=== PATIENT | male | born 1945 | race American Indian/Alaskan Native ===

== ENCOUNTER 2018-12-05 11:21 | Day surgery (SDC) | payer MEDICARE ==
[2018-12-05] MEDS ORDERED: Lactated Ringer's 500 ML IV ONE (11:51)
[2018-12-05 11:53] VITALS: BMI 17.1
[2018-12-05 12:10] VITALS: O2SAT 99
[2018-12-05] MEDS ORDERED: Propofol 10 mg/ml Inj (20 ML) ONE (13:08)
[2018-12-05 13:39] VITALS: RESP 16
[2018-12-05 14:00] VITALS: BP 178/92; PULSE 88; TEMP 98.1
== END 2018-12-05 14:31 | disposition home or self-care (01) ==
LOC: H.ENDO 11:21
PROVIDERS: ATTEND Internal Medicine Gastroenterology
DX: D12.5 Benign neoplasm of sigmoid colon (principal); K52.9 Noninfective gastroenteritis and colitis, unspecified; K92.1 Melena; K62.89 Other specified diseases of anus and rectum
CPT/HCPCS: 45380; 88305; J2001; J2704; J7120

== ENCOUNTER 2018-12-05 15:37 | Inpatient (IN) | payer MEDICARE ==
[2018-12-05 15:39] VITALS: BMI 17.1
--- NOTE | 2018-12-05 16:14 | ED PDOC ---
HPI:Nausea, Vomiting, Diarrhea Time Seen by Provider: 12/05/18 15:49 Chief Complaint (Provider): Diarrhea, Abdominal Pain History Per: Patient History/Exam Limitations: no limitations Onset/Duration Of Symptoms: Days (x2 weeks) Current Symptoms Are (Timing): Still Present Additional Complaint(s): 73 year old male presents to the ED for evaluation of diarrhea and abdominal pain. Patient states that for the past two weeks he has been having 5-6 episodes or more daily of watery, sometimes bloody diarrhea associated with mild crampy abdominal pain which feels similar to past flare ups of his ulcerative colitis. He reports Dr. Nieto sent him to ED for further evaluation s/p colonoscopy today which showed active exacerbation of his ulcerative colitis. Patient also complaining of some fatigue and generalized weakness at this time. Denies recent antibiotic use. Past Medical History Reviewed: Historical Data, Nursing Documentation, Vital Signs Primary Care Provider: Km Finch - Medical History PMH: HTN Denies: Chronic Kidney Disease Other PMH: ulcerative colitis - Surgical History Surgical History: Back Surgery (lumbar spine s/p fracture) Other surgeries: colonoscopy - Family History Family History: States: No Known Family Hx - Social History Current smoker - smoking cessation education provided: No - Home Medications Home Medications: Ambulatory Orders Medication Instructions Recorded predniSONE [predniSONE Tab] 20 mg PO BID 12/05/18 - Allergies Allergies/Adverse Reactions: Allergies Allergy/AdvReac Type Severity Reaction Status Date / Time No Known Allergies Allergy Verified 12/05/18 11:28 Review of Systems ROS Statement: Except As Marked, All Systems Reviewed And Found Negative (as per HPI) Constitutional: Positive for: Weakness (generalized, and fatigue) Gastrointestinal: Positive for: Abdominal Pain (mild crampy), Diarrhea (watery, sometimes bloody) Physical Exam - Reviewed Nursing Documentation Reviewed: Yes Vital Signs Reviewed: Yes - Physical Exam Appears: Positive for: Well, Non-toxic, No Acute Distress Head Exam: Positive for: ATRAUMATIC, NORMOCEPHALIC Skin: Positive for: Pallor Eye Exam: Positive for: EOMI, PERRL ENT: Negative for: Pharyngeal Erythema, Tonsillar Exudate Neck: Positive for: Painless ROM, Supple Cardiovascular/Chest: Positive for: Regular Rate, Rhythm. Negative for: Murmur Respiratory: Positive for: Normal Breath Sounds. Negative for: Respiratory Distress Gastrointestinal/Abdominal: Positive for: Soft. Negative for: Tenderness, Mass, Distended, Guarding, Rebound Back: Negative for: Decreased ROM Extremity: Positive for: Normal ROM. Negative for: Deformity Lymphatic: Negative for: Adenopathy Neurological/Psych: Positive for: Awake, Alert. Negative for: Motor/Sensory Deficits - Laboratory Results Result Diagrams: 12/05/18 17:04 12/05/18 17:04 Medical Decision Making Medical Decision Making: Initial Impression: ulcerative colitis exacerbation DDx includes but is not limited to: abdominal abscess, sepsis, dehydration, anemia Initial Plan: --Type and screen --Abd pelvis PO&IV contrast --EKG --CMP --Lact acid --Mg, Ph --U-dip --CBC with differential --PT / PTT --Normal saline IV --Blood culture --Reevaluation Labs demonstrate anemia. No leukocytosis and normal lactic acid. [address] [facility]. Recommends IV solumedrol 40mg BID. No antibiotics at this time since pt has normal WBC and no fever (i.e. no signs of sepsis.) Will follow in hospital. IN[facility] Villal[facility] Medical Service admission Scribe Attestation: Documented by Maureen Alves, acting as a scribe for Carol Lopez MD. Provider Scribe Attestation: All medical record entries made by the Scribe were at my direction and personally dictated by me. I have reviewed the chart and agree that the record accurately reflects my personal performance of the history, physical exam, medical decision making, and the department course for this patient. I have also personally directed, reviewed, and agree with the discharge instructions and disposition. Disposition - Clinical Impression Clinical Impression: Ulcerative colitis, Abdominal pain - Disposition Disposition Time: 19:00 Condition: FAIR - Pt Status Changed To: Hospital Disposition Of: Inpatient - Admit Certification Admit to Inpatient:: After my assessment, the patient will require hospitalization for at least two midnights. This is because of the severity of symptoms shown, intensity of services needed, and/or the medical risk in this patient being treated as an outpatient. - POA Present On Arrival: None
[2018-12-05] MEDS ORDERED: Sodium Chloride 0.9% 500 ML IV STA (16:29)
[2018-12-05] MEDS ORDERED: Iohexol 240 (50 ml) PO ONE (16:29)
[2018-12-05] MEDS ORDERED: Iohexol 240 (50 ml) ONE (16:45)
[2018-12-05 17:35] LABS: BASO % 0.1 % (0.0-2.0); HEMOGLOBIN 10.7 g/dL (12.0-18.0); LYMPH # 0.7 K/uL (1.0-4.3); LYMPH % 6.8 % (20.0-40.0); MEAN CELL VOLUME 96.7 fl (80.0-94.0); MEAN CORPUSCULAR HGB CONC 33.1 g/dL (33.0-37.0); MEAN PLATELET VOLUME 7.1 fl (7.2-11.7); MONO # 1.7 K/uL (0.0-0.8); MONO % 16.8 % (0.0-10.0); NEUT % 76.3 % (50.0-75.0); NRBC % 0.1 % (0.0-0.0); PLATELET COUNT 497 K/uL (130-400); RBC 3.34 Mil/uL (4.40-5.90); RED CELL DISTRIBUTION WIDTH 13.2 % (11.5-14.5); WHITE BLOOD COUNT 10.4 K/uL (4.8-10.8)
[2018-12-05 17:53] LABS: ALB/GLOB RATIO 1.1 (1.0-2.1); ALBUMIN 3.5 g/dL (3.5-5.0); ALT/SGPT 27 U/L (21-72); AST/SGOT 41 U/L (17-59); BLOOD UREA NITROGEN 16 mg/dl (9-20); CALCIUM 8.2 mg/dL (8.4-10.2); GFR NON-AFRICAN AMERICAN > 60
[2018-12-05 18:00] LABS: BANDS 5 % (0-2); LYMPHOCYTE 5 % (20-50); MONOCYTE 15 % (0-10); NEUTROPHIL 75 % (42-75); TOTAL CELLS COUNTED 100
[2018-12-05 18:01] LABS: ANISOCYTOSIS SLIGHT; HYPOCHROMIC SLIGHT; PLATELET ESTIMATE SLIGHTLY INCREASED (NORMAL); POIKILOCYTOSIS SLIGHT
[2018-12-05] MEDS ORDERED: Iohexol 300 100 ML IJ ONE (18:14)
[2018-12-05] MEDS ORDERED: Sodium Chloride 0.9% 50 ML IV ONE (18:14)
--- NOTE | 2018-12-05 18:59 | RAD ---
HISTORY: weakness COMPARISON: None available. TECHNIQUE: Chest, one view. FINDINGS: LUNGS: Biapical pleural thickening. Mild left basilar atelectasis. Please note that chest x-ray has limited sensitivity for the detection of pulmonary masses. PLEURA: No significant pleural effusion identified. No definite pneumothorax . CARDIOVASCULAR: Borderline cardiomegaly. Aortic ectasia. Atherosclerotic calcifications. OSSEOUS STRUCTURES: Osseous demineralization. Degenerative changes. VISUALIZED UPPER ABDOMEN: Unremarkable. OTHER FINDINGS: None. IMPRESSION: Borderline cardiomegaly. Biapical pleural thickening. Mild left basilar atelectasis.
[2018-12-05] MEDS ORDERED: MethylPREDNISolone 40 mg Vial IVP STA (19:04)
[2018-12-05 19:08] LABS: PROTHROMBIN TIME 11.7 Seconds (9.8-13.1)
[2018-12-05 19:11] LABS: PARTIAL THROMBOPLASTIN TIME 27.1 Seconds (25.6-37.1)
--- NOTE | 2018-12-05 22:21 | CP.PCM.CON ---
History of Present Illness - History of Present Illness History of Present Illness: Pt ia a 73 year old male with h/o Ulcerative colitis [place] and has discontinued all his meds. Pt states he was in his usual state of health up to 2 weeks ago when he developed nausea with abdominal pain and several episodes of watery bloody diarrhea. Pt was started on po prednisone stool cultures where ordered as outpatient and was scheduled for a colonoscopy that showed 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Colonoscopy was aborted because of the severity of the disease and risk of perforation. Pt was referred to er for evaluation and iv cortisone rx Review of Systems - Constitutional Constitutional: Fatigue, Malaise, Weight Loss - Gastrointestinal Gastrointestinal: Abdominal Pain, Diarrhea, Other Additional comments: rectal bleeding and bloody diarrhea Past Patient History - Past Medical History & Family History Past Medical History?: Yes - Past Social History Smoking Status: Never Smoked - CARDIAC Hx Hypertension: Yes - PULMONARY Hx Respiratory Disorders: No - NEUROLOGICAL Hx Neurological Disorder: No - HEENT Hx HEENT Problems: No - RENAL Hx Chronic Kidney Disease: No - ENDOCRINE/METABOLIC Hx Endocrine Disorders: No - HEMATOLOGICAL/ONCOLOGICAL Hx Blood Disorders: No - INTEGUMENTARY Hx Dermatological Problems: No - MUSCULOSKELETAL/RHEUMATOLOGICAL Hx Musculoskeletal Disorders: Yes Hx Back Pain: Yes Other/Comment: hx of spinal sx - GASTROINTESTINAL Hx Gastrointestinal Disorders: Yes Hx Colitis: Yes - GENITOURINARY/GYNECOLOGICAL Hx Genitourinary Disorders: No - PSYCHIATRIC Hx Psychophysiologic Disorder: No Hx Emotional Abuse: No Hx Physical Abuse: No Hx Substance Use: No - SURGICAL HISTORY Hx Surgeries: Yes Other/Comment: colonoscopy today - ANESTHESIA Hx Anesthesia: Yes Hx Anesthesia Reactions: No Hx Malignant Hyperthermia: No Meds Allergies/Adverse Reactions: Allergies Allergy/AdvReac Type Severity Reaction Status Date / Time No Known Allergies Allergy Verified 12/05/18 11:28 Physical Exam - Constitutional Appears: Cachectic, Chronically Ill - Head Exam Head Exam: ATRAUMATIC, NORMAL INSPECTION, NORMOCEPHALIC - Eye Exam Eye Exam: EOMI, Normal appearance Pupil Exam: NORMAL ACCOMODATION - ENT Exam ENT Exam: Mucous Membranes Moist, Normal Exam - Neck Exam Neck exam: Positive for: Normal Inspection - Respiratory Exam Respiratory Exam: Clear to Auscultation Bilateral, NORMAL BREATHING PATTERN - Cardiovascular Exam Cardiovascular Exam: REGULAR RHYTHM - GI/Abdominal Exam GI & Abdominal Exam: Normal Bowel Sounds, Soft - Rectal Exam Rectal Exam: Bloody Stool - Exam External exam: NORMAL EXTERNAL EXAM - Extremities Exam Extremities exam: Positive for: normal inspection - Back Exam Back exam: NORMAL INSPECTION - Neurological Exam Neurological exam: Alert, CN II-XII Intact - Psychiatric Exam Psychiatric exam: Normal Affect, Normal Mood - Skin Skin Exam: Normal Color, Warm Results - Vital Signs Recent Vital Signs: Last Vital Signs Temp 98.5 F 12/05/18 21:04 Pulse 97 H 12/05/18 21:04 Resp 18 12/05/18 21:04 BP 156/85 H 12/05/18 21:04 Pulse Ox 99 12/05/18 21:04 - Labs Result Diagrams: 12/05/18 17:04 12/05/18 17:04 Labs: Laboratory Results - last 24 hr 12/05/18 12/05/18 12/05/18 17:04 17:04 17:04 WBC 10.4 RBC 3.34 L Hgb 10.7 L Hct 32.2 L MCV 96.7 H MCH 32.0 H MCHC 33.1 RDW 13.2 Plt Count 497 H MPV 7.1 L Neut % (Auto) 76.3 H Lymph % (Auto) 6.8 L [place] % (Auto) 16.8 H Eos % (Auto) 0.0 Baso % (Auto) 0.1 Neut # (Auto) 8.0 H Lymph # (Auto) 0.7 L [place] # (Auto) 1.7 H Eos # (Auto) 0.0 Baso # (Auto) 0.0 Neutrophils % (Manual) 75 Band Neutrophils % 5 H Lymphocytes % (Manual) 5 L Monocytes % (Manual) 15 H Platelet Estimate Slightly increased H Hypochromasia (manual) Slight Poikilocytosis (manual Slight Anisocytosis (manual) Slight PT INR APTT Sodium 137 Potassium 3.4 L Chloride 96 L Carbon Dioxide 27 Anion Gap 17 BUN 16 Creatinine 0.9 Est GFR ( Amer) > 60 Est GFR (Non-Af Amer) > 60 Random Glucose 118 H Lactic Acid Calcium 8.2 L Phosphorus 3.3 Magnesium 1.8 Total Bilirubin 0.5 AST 41 ALT 27 Alkaline Phosphatase 82 Total Protein 6.8 Albumin 3.5 Globulin 3.3 Albumin/Globulin Ratio 1.1 Blood Type O POSITIVE Antibody Screen Negative BBK History Checked No verified bt 12/05/18 12/05/18 17:04 18:40 WBC RBC Hgb Hct MCV MCH MCHC RDW Plt Count MPV Neut % (Auto) Lymph % (Auto) [place] % (Auto) Eos % (Auto) Baso % (Auto) Neut # (Auto) Lymph # (Auto) [place] # (Auto) Eos # (Auto) Baso # (Auto) Neutrophils % (Manual) Band Neutrophils % Lymphocytes % (Manual) Monocytes % (Manual) Platelet Estimate Hypochromasia (manual) Poikilocytosis (manual Anisocytosis (manual) PT 11.7 INR 1.0 APTT 27.1 Sodium Potassium Chloride Carbon Dioxide Anion Gap BUN Creatinine Est GFR ( Amer) Est GFR (Non-Af Amer) Random Glucose Lactic Acid 3.3 H Calcium Phosphorus Magnesium Total Bilirubin AST ALT Alkaline Phosphatase Total Protein Albumin Globulin Albumin/Globulin Ratio Blood Type Antibody Screen BBK History Checked Assessment & Plan (1) Exacerbation of ulcerative colitis Assessment and Plan: IV Solumedrol 40 mg IVPB q 12 hrs stool culture C dif replace K low residue diet Follow path report and CT abdomen and pelvis Will need suveilance colonoscopy once colitis improve Status: Acute (2) Anemia Status: Acute (3) Hypokalemia Status: Acute
[2018-12-05] MEDS ORDERED: Potassium Chloride 20 mEq ER Tab PO ONE (22:32)
[2018-12-05] MEDS: Sodium Chloride 0.45% 1,000 ML IV SCH (23:59)
[2018-12-06 06:25] LABS: HEMOGLOBIN 9.1 g/dL (12.0-18.0); LYMPH # 0.3 K/uL (1.0-4.3); LYMPH % 7.4 % (20.0-40.0); MEAN CELL VOLUME 94.2 fl (80.0-94.0); MEAN CORPUSCULAR HEMOGLOBIN 32.9 pg (27.0-31.0); MEAN PLATELET VOLUME 6.9 fl (7.2-11.7); MONO # 0.2 K/uL (0.0-0.8); MONO % 4.5 % (0.0-10.0); NEUT # 4.1 K/uL (1.8-7.0); NEUT % 88.1 % (50.0-75.0); RBC 2.75 Mil/uL (4.40-5.90); RED CELL DISTRIBUTION WIDTH 13.1 % (11.5-14.5); WHITE BLOOD COUNT 4.7 K/uL (4.8-10.8)
[2018-12-06 06:52] LABS: ALBUMIN 2.9 g/dL (3.5-5.0); ALT/SGPT 26 U/L (21-72); AST/SGOT 22 U/L (17-59); BLOOD UREA NITROGEN 11 mg/dl (9-20); CALCIUM 7.4 mg/dL (8.4-10.2); GFR NON-AFRICAN AMERICAN > 60; HDL CHOLESTEROL 32 MG/DL (30-70)
[2018-12-06 06:54] LABS: LDL CHOLESTEROL 51 mg/dL (0-129)
--- NOTE | 2018-12-06 08:41 | CP.PCM.HP ---
<RiosCesar - Last Filed: 12/06/18 11:09> History of Present Illness - History of Present Illness History of Present Illness: 73 year old male with h/o Ulcerative colitis presents to the ED for evaluation of diarrhea and abdominal pain onset 2 weeks ago. Endorses 5-6 episodes og watery and bloody stools associated with cramping diffuse abdominal pain, associated fatigue and generalized weakness. Patient being of UC treatment for a while. He endorses having colonoscopy done yesterday under Dr Nieto and he was sent here for further evaluation. Otherwise he denies fever, vomiting, chills, CP or sob, recent abx use or sick contacts. Patient seen and examined this morning at bedside with Dr Villalobos, reports feeling better, pain improving, per nurse 5 watery BM during night. PMH: UC, HTN PSH: back surgery, lumbar spine s/p fracture, colonoscopy Meds: chart reviewed, as bellow NKDA FMH: non contributory SH: denies etoh, tobacco or ilicit drugs Present on Admission - Present on Admission Any Indicators Present on Admission: No Review of Systems - Review of Systems All systems: reviewed and no additional remarkable complaints except (HPI) Past Patient History - Past Medical History & Family History Past Medical History?: Yes - Past Social History Smoking Status: Former Smoker - CARDIAC Hx Cardiac Disorders: Yes Hx Hypertension: Yes - PULMONARY Hx Respiratory Disorders: No - NEUROLOGICAL Hx Neurological Disorder: No - HEENT Hx HEENT Problems: No - RENAL Hx Chronic Kidney Disease: No - ENDOCRINE/METABOLIC Hx Endocrine Disorders: No - HEMATOLOGICAL/ONCOLOGICAL Hx Blood Disorders: No - INTEGUMENTARY Hx Dermatological Problems: No - MUSCULOSKELETAL/RHEUMATOLOGICAL Hx Musculoskeletal Disorders: Yes Hx Back Pain: Yes Hx Falls: Yes Other/Comment: hx of spinal sx - GASTROINTESTINAL Hx Gastrointestinal Disorders: Yes Hx Colitis: Yes - GENITOURINARY/GYNECOLOGICAL Hx Genitourinary Disorders: No - PSYCHIATRIC Hx Psychophysiologic Disorder: No Hx Emotional Abuse: No Hx Physical Abuse: No Hx Substance Use: No - SURGICAL HISTORY Hx Surgeries: Yes Other/Comment: colonoscopy today 12/05/18 - ANESTHESIA Hx Anesthesia: Yes Hx Anesthesia Reactions: No Hx Malignant Hyperthermia: No Meds Allergies/Adverse Reactions: Allergies Allergy/AdvReac Type Severity Reaction Status Date / Time No Known Allergies Allergy Verified 12/05/18 11:28 Physical Exam - Constitutional Appears: Non-toxic, No Acute Distress - Head Exam Head Exam: NORMAL INSPECTION - Eye Exam Eye Exam: EOMI, Normal appearance, PERRL - ENT Exam ENT Exam: Mucous Membranes Moist - Neck Exam Neck exam: Positive for: Full Rom, Normal Inspection. Negative for: Tenderness, Thyromegaly - Respiratory Exam Respiratory Exam: Clear to Auscultation Bilateral, NORMAL BREATHING PATTERN. absent: Chest Wall Tenderness - Cardiovascular Exam Cardiovascular Exam: REGULAR RHYTHM, +S1, +S2. absent: Tachycardia - GI/Abdominal Exam GI & Abdominal Exam: Normal Bowel Sounds, Soft, Tenderness (mild diffuse, on deep palpation). absent: Distended, Guarding - Extremities Exam Extremities exam: Negative for: calf tenderness, pedal edema - Neurological Exam Neurological exam: Alert, CN II-XII Intact, Oriented x3 - Psychiatric Exam Psychiatric exam: Normal Mood - Skin Skin Exam: Dry, Warm Results - Vital Signs Recent Vital Signs: Last Vital Signs Temp 98.2 F 12/06/18 08:06 Pulse 91 H 12/06/18 08:06 Resp 19 12/06/18 08:06 BP 150/79 12/06/18 08:06 Pulse Ox 98 12/06/18 08:06 - Labs Result Diagrams: 12/06/18 05:35 12/06/18 05:35 Labs: Laboratory Results - last 24 hr 12/05/18 12/05/18 12/05/18 17:04 17:04 17:04 WBC 10.4 RBC 3.34 L Hgb 10.7 L Hct 32.2 L MCV 96.7 H MCH 32.0 H MCHC 33.1 RDW 13.2 Plt Count 497 H MPV 7.1 L Neut % (Auto) 76.3 H Lymph % (Auto) 6.8 L [place] % (Auto) 16.8 H Eos % (Auto) 0.0 Baso % (Auto) 0.1 Neut # (Auto) 8.0 H Lymph # (Auto) 0.7 L [place] # (Auto) 1.7 H Eos # (Auto) 0.0 Baso # (Auto) 0.0 Neutrophils % (Manual) 75 Band Neutrophils % 5 H Lymphocytes % (Manual) 5 L Monocytes % (Manual) 15 H Platelet Estimate Slightly increased H Hypochromasia (manual) Slight Poikilocytosis (manual Slight Anisocytosis (manual) Slight PT INR APTT Sodium 137 Potassium 3.4 L Chloride 96 L Carbon Dioxide 27 Anion Gap 17 BUN 16 Creatinine 0.9 Est GFR ( Amer) > 60 Est GFR (Non-Af Amer) > 60 Random Glucose 118 H Lactic Acid Calcium 8.2 L Phosphorus 3.3 Magnesium 1.8 Total Bilirubin 0.5 AST 41 ALT 27 Alkaline Phosphatase 82 Total Protein 6.8 Albumin 3.5 Globulin 3.3 Albumin/Globulin Ratio 1.1 Triglycerides Cholesterol LDL Cholesterol Direct HDL Cholesterol Vitamin B12 Thyroxine (T4) TSH 3rd Generation Stool Occult Blood C. difficile Ag & Toxin Blood Type O POSITIVE Blood Type Confirm Antibody Screen Negative BBK History Checked No verified bt 12/05/18 12/05/18 12/06/18 17:04 18:40 00:42 WBC RBC Hgb Hct MCV MCH MCHC RDW Plt Count MPV Neut % (Auto) Lymph % (Auto) [place] % (Auto) Eos % (Auto) Baso % (Auto) Neut # (Auto) Lymph # (Auto) [place] # (Auto) Eos # (Auto) Baso # (Auto) Neutrophils % (Manual) Band Neutrophils % Lymphocytes % (Manual) Monocytes % (Manual) Platelet Estimate Hypochromasia (manual) Poikilocytosis (manual Anisocytosis (manual) PT 11.7 INR 1.0 APTT 27.1 Sodium Potassium Chloride Carbon Dioxide Anion Gap BUN Creatinine Est GFR ( Amer) Est GFR (Non-Af Amer) Random Glucose Lactic Acid 3.3 H Calcium Phosphorus Magnesium Total Bilirubin AST ALT Alkaline Phosphatase Total Protein Albumin Globulin Albumin/Globulin Ratio Triglycerides Cholesterol LDL Cholesterol Direct HDL Cholesterol Vitamin B12 Thyroxine (T4) TSH 3rd Generation Stool Occult Blood Positive H C. difficile Ag & Toxin Blood Type Blood Type Confirm Antibody Screen BBK History Checked 12/06/18 12/06/18 12/06/18 04:00 05:35 05:35 WBC 4.7 L D RBC 2.75 L Hgb 9.1 L Hct 25.9 L MCV 94.2 H D MCH 32.9 H MCHC 35.0 RDW 13.1 Plt Count 377 D MPV 6.9 L Neut % (Auto) 88.1 H Lymph % (Auto) 7.4 L [place] % (Auto) 4.5 Eos % (Auto) 0.0 Baso % (Auto) 0.0 Neut # (Auto) 4.1 Lymph # (Auto) 0.3 L [place] # (Auto) 0.2 Eos # (Auto) 0.0 Baso # (Auto) 0.0 Neutrophils % (Manual) Band Neutrophils % Lymphocytes % (Manual) Monocytes % (Manual) Platelet Estimate Hypochromasia (manual) Poikilocytosis (manual Anisocytosis (manual) PT INR APTT Sodium Potassium Chloride Carbon Dioxide Anion Gap BUN Creatinine Est GFR ( Amer) Est GFR (Non-Af Amer) Random Glucose Lactic Acid Calcium Phosphorus Magnesium Total Bilirubin AST ALT Alkaline Phosphatase Total Protein Albumin Globulin Albumin/Globulin Ratio Triglycerides Cholesterol LDL Cholesterol Direct HDL Cholesterol Vitamin B12 Thyroxine (T4) TSH 3rd Generation Stool Occult Blood C. difficile Ag & Toxin Negative Blood Type Blood Type Confirm O POSITIVE Antibody Screen BBK History Checked 12/06/18 05:35 WBC RBC Hgb Hct MCV MCH MCHC RDW Plt Count MPV Neut % (Auto) Lymph % (Auto) [place] % (Auto) Eos % (Auto) Baso % (Auto) Neut # (Auto) Lymph # (Auto) [place] # (Auto) Eos # (Auto) Baso # (Auto) Neutrophils % (Manual) Band Neutrophils % Lymphocytes % (Manual) Monocytes % (Manual) Platelet Estimate Hypochromasia (manual) Poikilocytosis (manual Anisocytosis (manual) PT INR APTT Sodium 132 Potassium 3.4 L Chloride 96 L Carbon Dioxide 26 Anion Gap 13 BUN 11 Creatinine 0.8 Est GFR ( Amer) > 60 Est GFR (Non-Af Amer) > 60 Random Glucose 128 H Lactic Acid Calcium 7.4 L Phosphorus Magnesium Total Bilirubin 0.4 AST 22 ALT 26 Alkaline Phosphatase 63 Total Protein 5.7 L Albumin 2.9 L Globulin 2.8 Albumin/Globulin Ratio 1.0 Triglycerides 80 Cholesterol 88 LDL Cholesterol Direct 51 HDL Cholesterol 32 Vitamin B12 726 Thyroxine (T4) 7.95 TSH 3rd Generation 0.45 L Stool Occult Blood C. difficile Ag & Toxin Blood Type Blood Type Confirm Antibody Screen BBK History Checked Assessment & Plan - Assessment and Plan (Free Text) Assessment: 73 yo male with PMH of UC admitted with UC exacerbation. Plan: - s/p colonoscopy yesterday - VSS, afebrile - heme ocult positive - c diff negative - Solumedrol 40mg IV q12h - GI consulted, input appreciated - hypokalemia, replacing - Hgb drop from 10 to 9 this am, f/u cbc - advance diet as tolerated - rest of plan as ordered case discussed with Dr Villalobos. <Venkat Villalobos - Last Filed: 12/11/18 16:52> Results - Vital Signs Recent Vital Signs: Last Vital Signs Temp 98.4 F 12/11/18 15:57 Pulse 91 H 12/11/18 15:57 Resp 20 12/11/18 15:57 BP 157/82 H 12/11/18 15:57 Pulse Ox 94 L 12/11/18 15:57 - Labs Result Diagrams: 12/11/18 05:45 12/11/18 05:45 Labs: Laboratory Results - last 24 hr 12/11/18 12/11/18 12/11/18 05:45 05:45 05:45 WBC 11.4 H RBC 2.74 L Hgb 8.8 L Hct 26.2 L MCV 95.8 H MCH 32.2 H MCHC 33.6 RDW 13.5 Plt Count 333 MPV 7.0 L Neut % (Auto) 86.3 H Lymph % (Auto) 5.9 L [place] % (Auto) 7.7 Eos % (Auto) 0.0 Baso % (Auto) 0.1 Neut # (Auto) 9.9 H Lymph # (Auto) 0.7 L [place] # (Auto) 0.9 H Eos # (Auto) 0.0 Baso # (Auto) 0.0 Neutrophils % (Manual) 85 H Band Neutrophils % 1 Lymphocytes % (Manual) 6 L Monocytes % (Manual) 8 Platelet Estimate Normal Large Platelets Present Hypochromasia (manual) Moderate Anisocytosis (manual) Slight Sodium 129 L Potassium 4.5 Chloride 94 L Carbon Dioxide 28 Anion Gap 12 BUN 24 H Creatinine 0.8 Est GFR ( Amer) > 60 Est GFR (Non-Af Amer) > 60 Random Glucose 129 H Calcium 8.0 L Phosphorus 2.4 L Magnesium 2.0 Total Bilirubin 0.2 AST 61 H ALT 78 H Alkaline Phosphatase 74 Total Protein 5.7 L Albumin 3.0 L Globulin 2.7 Albumin/Globulin Ratio 1.1 Blood Type O POSITIVE Antibody Screen Negative BBK History Checked Patient has bt Assessment & Plan - Assessment and Plan (Free Text) Assessment: Patient was personally seen and examined by me in rounds with residents. Available labs and diagnostic data reviewed. Case, Patient's condition and management plan discussed with residents in rounds. Agree with resident's progress note. Plan: As ordered.
[2018-12-06] MEDS ORDERED: Enoxaparin 40 mg Syringe SC SCH (09:00)
[2018-12-06] MEDS ORDERED: Potassium Chloride 20 mEq ER Tab PO ONE (10:25)
[2018-12-06] MEDS ORDERED: methylPREDNISolone 40 MG in Sodium Chloride 0.9% 50 ML IV SCH (10:45)
--- NOTE | 2018-12-06 11:56 | CARD ---
APPROVED REPORT Date of service: 12/05/2018 EKG Measurement Heart [id number] <Conclusion> Sinus tachycardia Nonspecific ST abnormality Abnormal ECG
[2018-12-06] MEDS ORDERED: methylPREDNISolone 40 MG in Sodium Chloride 0.9% 50 ML IVPB SCH (12:00)
[2018-12-06] MEDS: Potassium Chl 40 mEq in D5-NS 1,000 ML IV SCH ×2 (12:14→21:20)
[2018-12-06] MEDS: MethylPREDNISolone 40 mg Vial IVP SCH (12:16)
[2018-12-06] MEDS: Sodium Chloride 0.45% 1,000 ML IV SCH (12:17)
--- NOTE | 2018-12-06 13:22 | CT ---
Date of service: 12/05/2018 PROCEDURE: CT Abdomen and Pelvis with contrast HISTORY: abdominal pain ulcerative colitis COMPARISON: None. TECHNIQUE: Contrast dose: 95 mL Omnipaque 300 Radiation dose: Total exam DLP = 239.92 mGy-cm. This CT exam was performed using one or more of the following dose reduction techniques: Automated exposure control, adjustment of the mA and/or kV according to patient size, and/or use of iterative reconstruction technique. FINDINGS: LOWER THORAX: Dependent subsegmental atelectasis right lower lobe. LIVER: Unremarkable. No gross lesion or ductal dilatation. GALLBLADDER AND BILE DUCTS: Unremarkable. PANCREAS: Unremarkable. No gross lesion or ductal dilatation. SPLEEN: Unremarkable. ADRENALS: Unremarkable. No mass. KIDNEYS AND URETERS: Unremarkable. No hydronephrosis. No solid mass. VASCULATURE: Unremarkable. No aortic aneurysm. There is atherosclerotic calcification of the abdominal aorta. BOWEL: There is extensive colitis involving the rectosigmoid colon only. There is dilatation of the remainder of the colon including the ascending, transverse and descending colon, filled with fluid. This is likely due to inflammation associated with the rectosigmoid colitis. There is no evidence of small-bowel obstruction. No other abnormal bowel loops are identified. APPENDIX: Not identified. PERITONEUM: Unremarkable. No free fluid. No free air. LYMPH NODES: Unremarkable. No enlarged lymph nodes. BLADDER: Unremarkable. REPRODUCTIVE: Unremarkable prostate BONES: Severe compression deformity of the L4 vertebra of indeterminate chronicity. There is lumbar dextroscoliosis with rotatory component. There is spinal stenosis at the L4-5 level. There is multilevel neural foraminal stenosis. OTHER FINDINGS: None. IMPRESSION: Rectosigmoid colitis consistent with known ulcerative colitis. Fluid-filled distention of the remainder of the colon likely secondary to this rectosigmoid colitis. Compression deformity of the L4 vertebra of indeterminate chronicity. Additional nonacute findings as above.
[2018-12-06] MEDS ORDERED: Tuberculin 5 Units/0.1 ml Inj ID ONE (16:38)
--- NOTE | 2018-12-06 20:26 | CP.PCM.PN ---
Subjective - Date & Time of Evaluation Date of Evaluation: 12/06/18 Time of Evaluation: 16:00 - Subjective Subjective: Pt admits to 6 to 7 watery bm with less blood since admission, denies abdominal pain fecver or chills. C dif and blood culture are negative. Objective - Vital Signs/Intake and Output Vital Signs (last 24 hours): Temp Pulse Resp BP Pulse Ox 98.3 F 80 18 144/73 98 12/06/18 16:18 12/06/18 16:18 12/06/18 16:18 12/06/18 16:18 12/06/18 16:18 - Medications Medications: Current Medications Enoxaparin Sodium (Lovenox) 40 mg SC DAILY [facility]; Protocol Sodium Chloride (Sodium Chloride 0.45%) 1,000 mls @ 80 mls/hr IV .[id number] [facility] Stop: 12/06/18 22:35 Last Admin: 12/06/18 12:17 Dose: 80 mls/hr Potassium Chloride/Dextrose/Sod Cl (D5-Ns1l+40meq Kcl) 1,000 mls @ 100 mls/hr IV .Q10H [facility] Stop: 12/07/18 08:43 Last Admin: 12/06/18 12:14 Dose: 100 mls/hr Lisinopril (Zestril) 20 mg PO DAILY [facility] Last Admin: 12/06/18 09:36 Dose: 20 mg Methylprednisolone (Solu-Medrol) 40 mg IVP Q12H [facility] Last Admin: 12/06/18 12:16 Dose: 40 mg - Labs Labs: 12/06/18 05:35 12/06/18 05:35 PT 11.7 Seconds (9.8-13.1) 12/05/18 18:40 INR 1.0 12/05/18 18:40 APTT 27.1 Seconds (25.6-37.1) 12/05/18 18:40 - Constitutional Appears: Well - Head Exam Head Exam: ATRAUMATIC, NORMAL INSPECTION, NORMOCEPHALIC - Eye Exam Eye Exam: EOMI, Normal appearance Pupil Exam: NORMAL ACCOMODATION, PERRL - ENT Exam ENT Exam: Mucous Membranes Moist, Normal Exam - Neck Exam Neck Exam: Full ROM, Normal Inspection - Respiratory Exam Respiratory Exam: Clear to Ausculation Bilateral, NORMAL BREATHING PATTERN - Cardiovascular Exam Cardiovascular Exam: REGULAR RHYTHM - GI/Abdominal Exam GI & Abdominal Exam: Soft, Normal Bowel Sounds - Rectal Exam Rectal Exam: Deferred - Extremities Exam Extremities Exam: Full ROM, Normal Capillary Refill - Back Exam Back Exam: NORMAL INSPECTION - Neurological Exam Neurological Exam: Alert - Psychiatric Exam Psychiatric exam: Normal Affect - Skin Skin Exam: Normal Color Assessment and Plan (1) Exacerbation of ulcerative colitis Assessment & Plan: Continue iv solumedrol, advance diet as tolerated, will have dietitian to see pt add ensure 1 can po bid Status: Acute (2) Anemia Status: Acute (3) Hypokalemia Status: Acute
[2018-12-07] MEDS: MethylPREDNISolone 40 mg Vial IVP SCH ×2 (00:25→11:51)
[2018-12-07] MEDS: Potassium Chl 40 mEq in D5-NS 1,000 ML IV SCH ×2 (02:22→04:15)
[2018-12-07 07:05] LABS: HEMOGLOBIN 8.3 g/dL (12.0-18.0); LYMPH # 0.3 K/uL (1.0-4.3); LYMPH % 5.3 % (20.0-40.0); MEAN CELL VOLUME 95.7 fl (80.0-94.0); MEAN CORPUSCULAR HEMOGLOBIN 32.1 pg (27.0-31.0); MEAN CORPUSCULAR HGB CONC 33.5 g/dL (33.0-37.0); MEAN PLATELET VOLUME 7.3 fl (7.2-11.7); MONO # 0.5 K/uL (0.0-0.8); NEUT # 4.6 K/uL (1.8-7.0); NEUT % 84.7 % (50.0-75.0); NRBC % 0.1 % (0.0-0.0); RBC 2.57 Mil/uL (4.40-5.90); RED CELL DISTRIBUTION WIDTH 13.1 % (11.5-14.5); WHITE BLOOD COUNT 5.4 K/uL (4.8-10.8)
[2018-12-07 07:32] LABS: ALBUMIN 2.7 g/dL (3.5-5.0); ALT/SGPT 26 U/L (21-72); AST/SGOT 34 U/L (17-59); BLOOD UREA NITROGEN 12 mg/dl (9-20); GFR NON-AFRICAN AMERICAN > 60
--- NOTE | 2018-12-07 13:08 | PN ---
DATE: 12/07/2018 SUBJECTIVE: The patient seen and examined. Interim events noted. Consults noted and appreciated. Gastroenterology followup and intervention noted and appreciated. The patient remains in regular medical floor. The patient feels better. Abdominal pain improved. The patient is still having frequency of bowel movement but no blood. No chest pain or shortness of breath. PHYSICAL EXAMINATION: GENERAL: The patient is in no acute distress. VITAL SIGNS: Stable. HEART: S1 and S2, normal and regular. LUNGS: Good bilateral air exchange. ABDOMEN: Soft, nontender, no organomegaly. No fluid. No sign of acute abdomen. No guarding, no rigidity, no rebound. Bowel sounds are present and normal. EXTREMITIES: No edema, no calf swelling, no tenderness. No acute ischemia. CENTRAL NERVOUS SYSTEM: Exam is essentially unchanged. DIAGNOSTIC DATA: Available diagnostic data reviewed. Overall, the patient is medically stable and improving. Plan as ordered. Venkat Villalobos MD
[2018-12-07] MEDS: Dextrose 5%/0.45% NS 1,000 ML IV SCH (18:06)
[2018-12-08] MEDS: MethylPREDNISolone 40 mg Vial IVP SCH ×2 (00:15→13:44)
[2018-12-08 06:28] LABS: MEAN CELL VOLUME 95.4 fl (80.0-94.0); MEAN CORPUSCULAR HGB CONC 33.6 g/dL (33.0-37.0); RBC 2.49 Mil/uL (4.40-5.90); RED CELL DISTRIBUTION WIDTH 13.3 % (11.5-14.5); WHITE BLOOD COUNT 6.3 K/uL (4.8-10.8)
[2018-12-08 06:43] LABS: ALBUMIN 2.6 g/dL (3.5-5.0); ALT/SGPT 49 U/L (21-72); AST/SGOT 57 U/L (17-59); BLOOD UREA NITROGEN 15 mg/dl (9-20); CALCIUM 7.4 mg/dL (8.4-10.2); GFR NON-AFRICAN AMERICAN > 60
[2018-12-08] MEDS: Dextrose 5%/0.45% NS 1,000 ML IV SCH (08:41)
--- NOTE | 2018-12-08 10:23 | PN ---
DATE: 12/08/2018 SUBJECTIVE: The patient seen and examined. Interim events noted. Consults noted and appreciated. Gastroenterology followup and intervention noted and appreciated. The patient remains in regular medical floor. abdominal pain and telephone orders were given. The patient tolerated medicine well and pain resolved. PHYSICAL EXAMINATION: GENERAL: The patient is in no acute distress. VITAL SIGNS: Stable. HEART: S1 and S2. Normal and regular. LUNGS: Good bilateral air exchange. ABDOMEN: Soft, nontender. No sign of acute abdomen. No guarding, no rigidity, no rebound. EXTREMITIES: No edema, no calf swelling, no tenderness, no acute ischemia. CENTRAL NERVOUS SYSTEM: Exam is essentially unchanged. DIAGNOSTIC DATA: Available diagnostic data reviewed. ASSESSMENT AND PLAN: Overall, the patient's general medical condition is stable. Plan as ordered. Venkat Villalobos MD
[2018-12-08] MEDS: Dextrose 5%/0.9% NS 1,000 ML IV SCH (16:18)
[2018-12-09] MEDS: MethylPREDNISolone 40 mg Vial IVP SCH ×2 (00:45→13:30)
[2018-12-09 07:09] LABS: MEAN CELL VOLUME 95.1 fl (80.0-94.0); MEAN CORPUSCULAR HEMOGLOBIN 32.7 pg (27.0-31.0); MEAN CORPUSCULAR HGB CONC 34.4 g/dL (33.0-37.0); RBC 2.75 Mil/uL (4.40-5.90); RED CELL DISTRIBUTION WIDTH 13.2 % (11.5-14.5); WHITE BLOOD COUNT 8.6 K/uL (4.8-10.8)
[2018-12-09 07:31] LABS: ALBUMIN 2.9 g/dL (3.5-5.0); ALT/SGPT 53 U/L (21-72); AST/SGOT 67 U/L (17-59); BLOOD UREA NITROGEN 17 mg/dl (9-20); CALCIUM 7.7 mg/dL (8.4-10.2); GFR NON-AFRICAN AMERICAN > 60
--- NOTE | 2018-12-09 09:35 | CP.PCM.PN ---
Subjective - Date & Time of Evaluation Date of Evaluation: 12/08/18 Time of Evaluation: 22:00 - Subjective Subjective: Pt doing better reports 3 to 4 loose bm in the last 24 hrs with less blood. Pt denies abdominal pain Objective - Vital Signs/Intake and Output Vital Signs (last 24 hours): Temp Pulse Resp BP Pulse Ox 98.5 F 84 20 150/79 96 12/09/18 08:31 12/09/18 09:05 12/09/18 08:31 12/09/18 09:05 12/09/18 08:31 - Medications Medications: Current Medications Acetaminophen (Tylenol 325mg Tab) 650 mg PO Q6 PRN PRN Reason: Pain, moderate (4-7) Last Admin: 12/08/18 21:02 Dose: 650 mg Enoxaparin Sodium (Lovenox) 40 mg SC DAILY [facility]; Protocol Dextrose/Sodium Chloride (Dextrose 5%/0.9% Ns 1000 Ml) 1,000 mls @ 70 mls/hr IV .[id number] [facility] Stop: 12/09/18 23:00 Last Admin: 12/08/18 16:18 Dose: 70 mls/hr Lisinopril (Zestril) 20 mg PO DAILY [facility] Last Admin: 12/09/18 09:05 Dose: 20 mg Methylprednisolone (Solu-Medrol) 40 mg IVP Q12H [facility] Last Admin: 12/09/18 00:45 Dose: 40 mg - Labs Labs: 12/09/18 05:45 12/09/18 05:45 PT 11.7 Seconds (9.8-13.1) 12/05/18 18:40 INR 1.0 12/05/18 18:40 APTT 27.1 Seconds (25.6-37.1) 12/05/18 18:40 Assessment and Plan (1) Exacerbation of ulcerative colitis Status: Acute (2) Anemia Status: Acute (3) Hypokalemia Status: Acute
--- NOTE | 2018-12-09 09:44 | CP.PCM.PN ---
Subjective - Date & Time of Evaluation Date of Evaluation: 12/08/18 Time of Evaluation: 22:00 - Subjective Subjective: Pt doing better, report 3 to 4 loose bm with less blood in the last 24 hours. Objective - Vital Signs/Intake and Output Vital Signs (last 24 hours): Temp Pulse Resp BP Pulse Ox 98.5 F 84 20 150/79 96 12/09/18 08:31 12/09/18 09:05 12/09/18 08:31 12/09/18 09:05 12/09/18 08:31 - Medications Medications: Current Medications Acetaminophen (Tylenol 325mg Tab) 650 mg PO Q6 PRN PRN Reason: Pain, moderate (4-7) Last Admin: 12/08/18 21:02 Dose: 650 mg Enoxaparin Sodium (Lovenox) 40 mg SC DAILY [facility]; Protocol Dextrose/Sodium Chloride (Dextrose 5%/0.9% Ns 1000 Ml) 1,000 mls @ 70 mls/hr IV .[id number] [facility] Stop: 12/09/18 23:00 Last Admin: 12/08/18 16:18 Dose: 70 mls/hr Lisinopril (Zestril) 20 mg PO DAILY [facility] Last Admin: 12/09/18 09:05 Dose: 20 mg Methylprednisolone (Solu-Medrol) 40 mg IVP Q12H [facility] Last Admin: 12/09/18 00:45 Dose: 40 mg - Labs Labs: 12/09/18 05:45 12/09/18 05:45 PT 11.7 Seconds (9.8-13.1) 12/05/18 18:40 INR 1.0 12/05/18 18:40 APTT 27.1 Seconds (25.6-37.1) 12/05/18 18:40 - Constitutional Appears: No Acute Distress - Head Exam Head Exam: NORMAL INSPECTION - Eye Exam Eye Exam: EOMI, Normal appearance, PERRL - ENT Exam ENT Exam: Normal Exam - Neck Exam Neck Exam: Full ROM, Normal Inspection - Respiratory Exam Respiratory Exam: Clear to Ausculation Bilateral, NORMAL BREATHING PATTERN - Cardiovascular Exam Cardiovascular Exam: REGULAR RHYTHM - GI/Abdominal Exam GI & Abdominal Exam: Soft, Normal Bowel Sounds Assessment and Plan (1) Exacerbation of ulcerative colitis Assessment & Plan: Continue present management dietitian consult pending Status: Acute (2) Anemia Status: Acute (3) Hypokalemia Status: Acute
--- NOTE | 2018-12-09 15:39 | PN ---
DATE: 12/09/2018 SUBJECTIVE: The patient seen and examined. Interim events noted. The patient remains in regular medical floor. The patient feels much better. Abdominal pain is present, but improving. No chest pain. No shortness of breath. PHYSICAL EXAMINATION: GENERAL: The patient is in no acute distress. VITAL SIGNS: Stable. HEART: S1 and S2 normal and regular. LUNGS: Good bilateral air exchange. ABDOMEN: Soft, nontender. No organomegaly. No bruits. No guarding. No rigidity. No rebound. Bowel sounds are present and normal. EXTREMITIES: No edema. No calf swelling. No tenderness. No acute ischemia. HIGH WORKER: Essentially unchanged. DIAGNOSTIC DATA: Available diagnostic data reviewed. ASSESSMENT AND PLAN: Overall, the patient's general medical condition is stable and improving. Plan as ordered. Venkat Villalobos MD
[2018-12-09] MEDS: Dextrose 5%/0.9% NS 1,000 ML IV SCH (19:52)
[2018-12-10] MEDS: MethylPREDNISolone 40 mg Vial IVP SCH ×3 (00:14→23:14)
[2018-12-10 06:28] LABS: MEAN CELL VOLUME 95.1 fl (80.0-94.0); MEAN CORPUSCULAR HEMOGLOBIN 31.9 pg (27.0-31.0); MEAN CORPUSCULAR HGB CONC 33.5 g/dL (33.0-37.0); RBC 2.51 Mil/uL (4.40-5.90); RED CELL DISTRIBUTION WIDTH 13.2 % (11.5-14.5); WHITE BLOOD COUNT 12.1 K/uL (4.8-10.8)
[2018-12-10 06:42] LABS: ALBUMIN 2.6 g/dL (3.5-5.0); ALT/SGPT 78 U/L (21-72); AST/SGOT 76 U/L (17-59); BLOOD UREA NITROGEN 20 mg/dl (9-20); CALCIUM 7.8 mg/dL (8.4-10.2); GFR NON-AFRICAN AMERICAN > 60
--- NOTE | 2018-12-10 07:59 | CP.PCM.PN ---
<Cesar Rios - Last Filed: 12/10/18 11:20> Subjective - Date & Time of Evaluation Date of Evaluation: 12/10/18 Time of Evaluation: 07:59 - Subjective Subjective: Patient seen and examined this morning with Dr Villalobos, no overnight events reported 2-3 BM last night with scant blood noted, denies any pain at this time, afebrile. Objective - Vital Signs/Intake and Output Vital Signs (last 24 hours): Temp Pulse Resp BP Pulse Ox 97.9 F 96 H 18 145/71 95 12/09/18 23:26 12/09/18 23:26 12/09/18 23:26 12/09/18 23:26 12/09/18 23:26 - Medications Medications: Current Medications Acetaminophen (Tylenol 325mg Tab) 650 mg PO Q6 PRN PRN Reason: Pain, moderate (4-7) Last Admin: 12/09/18 19:55 Dose: 650 mg Enoxaparin Sodium (Lovenox) 40 mg SC DAILY [facility]; Protocol Dextrose/Sodium Chloride (Dextrose 5%/0.9% Ns 1000 Ml) 1,000 mls @ 70 mls/hr IV .[id number] [facility] Stop: 12/12/18 23:00 Lisinopril (Zestril) 20 mg PO DAILY [facility] Last Admin: 12/09/18 09:05 Dose: 20 mg Methylprednisolone (Solu-Medrol) 40 mg IVP Q12H [facility] Last Admin: 12/10/18 00:14 Dose: 40 mg - Labs Labs: 12/10/18 05:25 12/10/18 05:25 PT 11.7 Seconds (9.8-13.1) 12/05/18 18:40 INR 1.0 12/05/18 18:40 APTT 27.1 Seconds (25.6-37.1) 12/05/18 18:40 - Constitutional Appears: Non-toxic, No Acute Distress - Head Exam Head Exam: NORMAL INSPECTION - Eye Exam Eye Exam: EOMI, PERRL - ENT Exam ENT Exam: Mucous Membranes Moist - Neck Exam Neck Exam: Full ROM. absent: Tenderness, Thyromegaly - Respiratory Exam Respiratory Exam: Clear to Ausculation Bilateral, NORMAL BREATHING PATTERN - Cardiovascular Exam Cardiovascular Exam: REGULAR RHYTHM, +S1, +S2. absent: Tachycardia - GI/Abdominal Exam GI & Abdominal Exam: Soft, Normal Bowel Sounds. absent: Distended, Tenderness - Extremities Exam Extremities Exam: absent: Calf Tenderness, Pedal Edema - Neurological Exam Neurological Exam: Alert, Awake, Oriented x3 - Psychiatric Exam Psychiatric exam: Normal Mood - Skin Skin Exam: Dry, Warm Assessment and Plan - Assessment and Plan (Free Text) Assessment: 73 yo male with PMH of UC admitted with UC exacerbation. Plan: - pain improved - VSS, afebrile - leukocytosis noted today, likely 2/2 steroids - Solumedrol 40mg IV q12h per GI - GI consulted, input appreciated - Anemia due to blood loss, H/H stable, monitor cbc - BP better controlled, continue lisinopril - DVT ppx scd for now, lovenox held due to GI bleed. - continue rest of plan as ordered case discussed with Dr Villalobos. <Venkat Villalobos - Last Filed: 12/11/18 16:47> Objective - Vital Signs/Intake and Output Vital Signs (last 24 hours): Temp Pulse Resp BP Pulse Ox 98.4 F 91 H 20 157/82 H 94 L 12/11/18 15:57 12/11/18 15:57 12/11/18 15:57 12/11/18 15:57 12/11/18 15:57 - Medications Medications: Current Medications Acetaminophen (Tylenol 325mg Tab) 650 mg PO Q6 PRN PRN Reason: Pain, moderate (4-7) Last Admin: 12/09/18 19:55 Dose: 650 mg Enoxaparin Sodium (Lovenox) 40 mg SC DAILY [facility]; Protocol Sodium Chloride (Sodium Chloride 0.9%) 1,000 mls @ 80 mls/hr IV .[id number] [facility] Stop: 12/12/18 10:17 Last Admin: 12/11/18 10:45 Dose: 80 mls/hr Lisinopril (Zestril) 20 mg PO DAILY [facility] Last Admin: 12/11/18 10:46 Dose: 20 mg Prednisone (Prednisone Tab) 20 mg PO BID [facility] - Labs Labs: 12/11/18 05:45 12/11/18 05:45 PT 11.7 Seconds (9.8-13.1) 12/05/18 18:40 INR 1.0 12/05/18 18:40 APTT 27.1 Seconds (25.6-37.1) 12/05/18 18:40 Assessment and Plan - Assessment and Plan (Free Text) Assessment: Patient was personally seen and examined by me in rounds with residents. Available labs and diagnostic data reviewed. Case, Patient's condition and management plan discussed with residents in rounds. Agree with resident's progress note. Plan: As ordered.
[2018-12-10] MEDS: Dextrose 5%/0.9% NS 1,000 ML IV SCH ×3 (08:24→22:40)
--- NOTE | 2018-12-10 14:36 | PQF ---
PROVIDER RESPONSE TEXT: Provider was unable to determine a response for this query. REVIEWER QUERY TEXT: Nutritional Deficiency Clarification There are clinical indicators and dietary orders noted in the Medical Record regarding nutritional st atus. Please provide a nutritional diagnosis if able to further specify. 12/06: RD note includes: BMI: 17.1 6ft 126 lbs. Underweight : Monitor: po intake, I and O's, weigh t. labs : recommendations: when feasible advance diet to Altered GI/Hepatic Diarrhea Management--N otice sent. OR: Disagree OR: Other explanation of clinical finding The patient's Clinical Indicators include: -- Query created by: Renetta Nelson on 12/06/2018 12:19 PM Electronically signed by: Cesar Rios 12/10/2018 2:33 PM
--- NOTE | 2018-12-10 14:36 | PQF ---
PROVIDER RESPONSE TEXT: Anemia due to acute blood loss REVIEWER QUERY TEXT: Anemia Type Anemia is documented in the Medical Record by the GI underwriting consultant Please specify the cause (includes s uspected or probable cause) Such as: -- Due to acute blood loss -- Due to chronic blood loss -- Due to iron deficiency -- Due to postoperative blood loss -- Due to chronic disease -- Other, please specify H/H:10.7/32.2->9.1/25.9 H and P includes: --admitted with UC exacerbation.Hgb drop from 10 to 9 this am, f/u cbc GI note includes;HPI: Pt was started on po prednisone stool cultures where ordered as outpatient and was scheduled for a colonoscopy that showed 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 ROS: rectal bleeding and bloody diarrhea (2) Anemia Status: Acute The patient's Clinical Indicators include: -- Query created by: Renetta Nelson on 12/06/2018 12:25 PM Electronically signed by: Cesar Rios 12/10/2018 2:33 PM
[2018-12-11 06:32] LABS: BASO % 0.1 % (0.0-2.0); HEMOGLOBIN 8.8 g/dL (12.0-18.0); LYMPH # 0.7 K/uL (1.0-4.3); LYMPH % 5.9 % (20.0-40.0); MEAN CELL VOLUME 95.8 fl (80.0-94.0); MEAN CORPUSCULAR HEMOGLOBIN 32.2 pg (27.0-31.0); MEAN CORPUSCULAR HGB CONC 33.6 g/dL (33.0-37.0); MONO # 0.9 K/uL (0.0-0.8); MONO % 7.7 % (0.0-10.0); NEUT # 9.9 K/uL (1.8-7.0); NEUT % 86.3 % (50.0-75.0); NRBC % 0.1 % (0.0-0.0); PLATELET COUNT 333 K/uL (130-400); RBC 2.74 Mil/uL (4.40-5.90); RED CELL DISTRIBUTION WIDTH 13.5 % (11.5-14.5); WHITE BLOOD COUNT 11.4 K/uL (4.8-10.8)
--- NOTE | 2018-12-11 06:57 | CP.PCM.PN ---
<Cesar Rios - Last Filed: 12/11/18 10:56> Subjective - Date & Time of Evaluation Date of Evaluation: 12/11/18 Time of Evaluation: 06:57 - Subjective Subjective: Patient seen and examined this morning with Dr Villalobos, no overnight events reported per night nurse pt had 2 brown BM last night w/o blood, denies any pain at this time, afebrile. Objective - Vital Signs/Intake and Output Vital Signs (last 24 hours): Temp Pulse Resp BP Pulse Ox 97.3 F L 92 H 18 153/78 H 97 12/11/18 00:52 12/11/18 00:52 12/11/18 00:52 12/11/18 00:52 12/11/18 00:52 - Medications Medications: Current Medications Acetaminophen (Tylenol 325mg Tab) 650 mg PO Q6 PRN PRN Reason: Pain, moderate (4-7) Last Admin: 12/09/18 19:55 Dose: 650 mg Enoxaparin Sodium (Lovenox) 40 mg SC DAILY [facility]; Protocol Dextrose/Sodium Chloride (Dextrose 5%/0.9% Ns 1000 Ml) 1,000 mls @ 70 mls/hr IV .[id number] [facility] Stop: 12/12/18 23:00 Last Admin: 12/10/18 22:40 Dose: 70 mls/hr Lisinopril (Zestril) 20 mg PO DAILY [facility] Last Admin: 12/10/18 08:20 Dose: 20 mg Methylprednisolone (Solu-Medrol) 40 mg IVP Q12H [facility] Last Admin: 12/10/18 23:14 Dose: 40 mg - Labs Labs: 12/11/18 05:45 12/10/18 05:25 PT 11.7 Seconds (9.8-13.1) 12/05/18 18:40 INR 1.0 12/05/18 18:40 APTT 27.1 Seconds (25.6-37.1) 12/05/18 18:40 - Constitutional Appears: Non-toxic, No Acute Distress - Head Exam Head Exam: NORMAL INSPECTION - Eye Exam Eye Exam: EOMI, Normal appearance, PERRL - ENT Exam ENT Exam: Mucous Membranes Moist - Neck Exam Neck Exam: Full ROM, Normal Inspection. absent: Thyromegaly - Respiratory Exam Respiratory Exam: Clear to Ausculation Bilateral, NORMAL BREATHING PATTERN. absent: Chest Wall Tenderness - Cardiovascular Exam Cardiovascular Exam: REGULAR RHYTHM, +S1, +S2 - GI/Abdominal Exam GI & Abdominal Exam: Soft, Normal Bowel Sounds. absent: Distended, Guarding, Tenderness - Extremities Exam Extremities Exam: absent: Calf Tenderness, Pedal Edema - Neurological Exam Neurological Exam: Alert, Awake, Oriented x3 - Psychiatric Exam Psychiatric exam: Normal Mood - Skin Skin Exam: Dry, Warm Assessment and Plan - Assessment and Plan (Free Text) Assessment: 73 yo male with PMH of UC admitted with UC exacerbation. Plan: - pain improved - VSS, afebrile - leukocytosis trtending now, likely 2/2 steroids - Solumedrol 40mg IV q12h per GI - GI consulted, input appreciated - Anemia due to blood loss, H/H stable, monitor cbc - BP better controlled, continue lisinopril - DVT ppx scd for now, lovenox held due to GI bleed. - continue rest of plan as ordered case discussed with Dr Villalobos. <Venkat Villalobos - Last Filed: 12/11/18 16:44> Objective - Vital Signs/Intake and Output Vital Signs (last 24 hours): Temp Pulse Resp BP Pulse Ox 98.4 F 91 H 20 157/82 H 94 L 12/11/18 15:57 12/11/18 15:57 12/11/18 15:57 12/11/18 15:57 12/11/18 15:57 - Medications Medications: Current Medications Acetaminophen (Tylenol 325mg Tab) 650 mg PO Q6 PRN PRN Reason: Pain, moderate (4-7) Last Admin: 12/09/18 19:55 Dose: 650 mg Enoxaparin Sodium (Lovenox) 40 mg SC DAILY [facility]; Protocol Sodium Chloride (Sodium Chloride 0.9%) 1,000 mls @ 80 mls/hr IV .[id number] [facility] Stop: 12/12/18 10:17 Last Admin: 12/11/18 10:45 Dose: 80 mls/hr Lisinopril (Zestril) 20 mg PO DAILY [facility] Last Admin: 12/11/18 10:46 Dose: 20 mg Prednisone (Prednisone Tab) 20 mg PO BID [facility] - Labs Labs: 12/11/18 05:45 05/29/19 05:45 PT 11.7 Seconds (9.8-13.1) 12/05/18 18:40 INR 1.0 12/05/18 18:40 APTT 27.1 Seconds (25.6-37.1) 12/05/18 18:40 Assessment and Plan - Assessment and Plan (Free Text) Assessment: Patient was personally seen and examined by me in rounds with residents. Available labs and diagnostic data reviewed. Case, Patient's condition and management plan discussed with residents in rounds. Agree with resident's progress note. Plan: As ordered.
[2018-12-11 07:12] LABS: ALB/GLOB RATIO 1.1 (1.0-2.1); ALT/SGPT 78 U/L (21-72); AST/SGOT 61 U/L (17-59); BLOOD UREA NITROGEN 24 mg/dl (9-20); GFR NON-AFRICAN AMERICAN > 60
[2018-12-11 08:39] LABS: BANDS 1 % (0-2); LYMPHOCYTE 6 % (20-50); MONOCYTE 8 % (0-10); NEUTROPHIL 85 % (42-75); PLATELET ESTIMATE NORMAL (NORMAL); TOTAL CELLS COUNTED 100
[2018-12-11 08:40] LABS: ANISOCYTOSIS SLIGHT
[2018-12-11 08:41] LABS: HYPOCHROMIC MODERATE; LARGE PLATELETS PRESENT
[2018-12-11] MEDS: Sodium Chloride 0.9% 1,000 ML IV SCH ×2 (10:45→22:00)
[2018-12-12 01:03] VITALS: RESP 19; TEMP 97.6
[2018-12-12 07:34] LABS: ALB/GLOB RATIO 1.1 (1.0-2.1); ALBUMIN 2.6 g/dL (3.5-5.0); ALT/SGPT 66 U/L (21-72); AST/SGOT 44 U/L (17-59); BLOOD UREA NITROGEN 27 mg/dl (9-20); CALCIUM 7.6 mg/dL (8.4-10.2); GFR NON-AFRICAN AMERICAN > 60
[2018-12-12 08:12] VITALS: BP 162/87; PULSE 78; O2SAT 98
--- NOTE | 2018-12-12 12:30 | CP.PCM.DIS ---
Provider - Provider Date of Admission: 12/05/18 19:03 Attending physician: Venkat Villalobos MD Consults: 12/05/18 19:05 Gastroenterology Consult Stat Comment: Consulting Provider: Vladimir Nieto Consulting Physician: Vladimir Nieto Reason for Consult: ulcerative colitis Time Spent in preparation of Discharge (in minutes): 39 Diagnosis - Discharge Diagnosis (1) Exacerbation of ulcerative colitis Status: Acute (2) Abdominal pain Status: Resolved (3) Hyponatremia Status: Acute (4) Hypertension Status: Chronic (5) Anemia Status: Chronic Hospital Course - Lab Results Lab Results: Micro Results 12/05/18 17:59 Blood Blood Culture - Final NO GROWTH AFTER 5 DAYS 12/05/18 17:59 Blood Gram Stain - Final TEST NOT PERFORMED 12/05/18 17:04 Blood Blood Culture - Final NO GROWTH AFTER 5 DAYS 12/05/18 17:04 Blood Gram Stain - Final TEST NOT PERFORMED 12/05/18 20:53 Stool Stool Culture - Final NO SALMONELLA, SHIGELLA OR CAMPYLOBACTER ISOLATED. Most Recent Lab Values WBC 11.4 K/uL (4.8-10.8) H 12/11/18 05:45 RBC 2.74 Mil/uL (4.40-5.90) L 12/11/18 05:45 Hgb 8.8 g/dL (12.0-18.0) L 12/11/18 05:45 Hct 26.2 % (35.0-51.0) L 12/11/18 05:45 MCV 95.8 fl (80.0-94.0) H 12/11/18 05:45 MCH 32.2 pg (27.0-31.0) H 12/11/18 05:45 MCHC 33.6 g/dL (33.0-37.0) 12/11/18 05:45 RDW 13.5 % (11.5-14.5) 12/11/18 05:45 Plt Count 333 K/uL (130-400) 12/11/18 05:45 MPV 7.0 fl (7.2-11.7) L 12/11/18 05:45 Neut % (Auto) 86.3 % (50.0-75.0) H 12/11/18 05:45 Lymph % (Auto) 5.9 % (20.0-40.0) L 12/11/18 05:45 Waldo % (Auto) 7.7 % (0.0-10.0) 12/11/18 05:45 Eos % (Auto) 0.0 % (0.0-4.0) 12/11/18 05:45 Baso % (Auto) 0.1 % (0.0-2.0) 12/11/18 05:45 Neut # (Auto) 9.9 K/uL (1.8-7.0) H 12/11/18 05:45 Lymph # (Auto) 0.7 K/uL (1.0-4.3) L 12/11/18 05:45 Waldo # (Auto) 0.9 K/uL (0.0-0.8) H 12/11/18 05:45 Eos # (Auto) 0.0 K/uL (0.0-0.7) 12/11/18 05:45 Baso # (Auto) 0.0 K/uL (0.0-0.2) 12/11/18 05:45 Neutrophils % (Manual) 85 % (42-75) H 12/11/18 05:45 Band Neutrophils % 1 % (0-2) 12/11/18 05:45 Lymphocytes % (Manual) 6 % (20-50) L 12/11/18 05:45 Monocytes % (Manual) 8 % (0-10) 12/11/18 05:45 Platelet Estimate Normal (NORMAL) 12/11/18 05:45 Large Platelets Present 12/11/18 05:45 Hypochromasia (manual) Moderate 12/11/18 05:45 Poikilocytosis (manual Slight 12/05/18 17:04 Anisocytosis (manual) Slight 12/11/18 05:45 PT 11.7 Seconds (9.8-13.1) 12/05/18 18:40 INR 1.0 12/05/18 18:40 APTT 27.1 Seconds (25.6-37.1) 12/05/18 18:40 Sodium 128 mmol/l (132-148) L 12/12/18 05:45 Potassium 4.5 MMOL/L (3.6-5.0) 12/12/18 05:45 Chloride 95 mmol/L (98-107) L 12/12/18 05:45 Carbon Dioxide 29 mmol/L (22-30) 12/12/18 05:45 Anion Gap 9 (10-20) L 12/12/18 05:45 BUN 27 mg/dl (9-20) H 12/12/18 05:45 Creatinine 0.9 mg/dl (0.8-1.5) 12/12/18 05:45 Est GFR ( Amer) > 60 12/12/18 05:45 Est GFR (Non-Af Amer) > 60 12/12/18 05:45 POC Glucose (mg/dL) 186 mg/dL (65-110) H 12/07/18 05:35 Random Glucose 97 mg/dL (75-110) 12/12/18 05:45 Lactic Acid 3.3 mmol/L (0.7-2.1) H 12/05/18 17:04 Calcium 7.6 mg/dL (8.4-10.2) L 12/12/18 05:45 Phosphorus 2.4 mg/dl (2.5-4.5) L 12/11/18 05:45 Magnesium 2.0 MG/DL (1.6-2.3) 12/11/18 05:45 Total Bilirubin 0.2 mg/dl (0.2-1.3) 12/12/18 05:45 AST 44 U/L (17-59) 12/12/18 05:45 ALT 66 U/L (21-72) 12/12/18 05:45 Alkaline Phosphatase 64 U/L (38-126) 12/12/18 05:45 Total Protein 5.0 G/DL (6.3-8.2) L 12/12/18 05:45 Albumin 2.6 g/dL (3.5-5.0) L 12/12/18 05:45 Globulin 2.4 gm/dL (2.2-3.9) 12/12/18 05:45 Albumin/Globulin Ratio 1.1 (1.0-2.1) 12/12/18 05:45 Triglycerides 80 mg/DL (0-149) 12/06/18 05:35 Cholesterol 88 mg/dL (0-199) 12/06/18 05:35 LDL Cholesterol Direct 51 mg/dL (0-129) 12/06/18 05:35 HDL Cholesterol 32 MG/DL (30-70) 12/06/18 05:35 Vitamin B12 726 pg/mL (239-931) 12/06/18 05:35 Thyroxine (T4) 7.95 ug/dl (5.5-11.0) 12/06/18 05:35 TSH 3rd Generation 0.45 mIU/ML (0.46-4.68) L 12/06/18 05:35 Stool Occult Blood Positive (NEGATIVE) H 12/06/18 00:42 C. difficile Ag & Toxin Negative (NEGATIVE) 12/06/18 04:00 Hepatitis Be Antibody Non-reactive (Non-reactive) 12/06/18 19:30 Hepatitis C Antibody Negative (NEGATIVE) 12/06/18 19:30 Blood Type O POSITIVE 12/11/18 05:45 Blood Type Confirm O POSITIVE 12/06/18 05:35 Antibody Screen Negative 12/11/18 05:45 BBK History Checked Patient has bt 12/11/18 05:45 - Hospital Course Hospital Course: 73 year old male with h/o Ulcerative colitis was admitted due to UC exacerbation. Pt with watery and bloody stools associated with cramping diffuse abdominal pain, associated fatigue and generalized weakness. Patient being off UC treatment for a while. GI Dr Nieto on board. Patient received IV steroids and then transitioned to PO pain and bloody diarrhea improved, afebrile during admission. BP medications also resumed. Stable hyponatremia noted during stay, IV fluids given, Patient stable for discharge, Rx sent to his pharmacy, patient to f/u with PCP and GI in 1 week. Discharge Exam - Head Exam Head Exam: NORMAL INSPECTION - Eye Exam Eye Exam: EOMI, Normal appearance - ENT Exam ENT Exam: Mucous Membranes Moist - Neck Exam Neck exam: Full Rom, Normal Inspection - Respiratory Exam Respiratory Exam: Clear to PA & Lateral, NORMAL BREATHING PATTERN - Cardiovascular Exam Cardiovascular Exam: REGULAR RHYTHM, +S1, +S2 - GI/Abdominal Exam GI & Abdominal Exam: Normal Bowel Sounds, Soft. absent: Distended, Guarding, Tenderness - Rectal Exam Rectal Exam: Deferred - Extremities Exam Extremities exam: normal capillary refill, normal inspection, pedal pulses present - Neurological Exam Neurological exam: Alert, CN II-XII Intact, Oriented x3 - Psychiatric Exam Psychiatric exam: Normal Mood - Skin Skin Exam: Dry, Warm Discharge Plan - Discharge Medications Prescriptions: Lisinopril [Zestril] 20 mg PO DAILY 30 Days #30 tab predniSONE [predniSONE Tab] 20 mg PO BID 30 Days #60 tab - Follow Up Plan Condition: FAIR Disposition: HOME/ ROUTINE Instructions: Ulcerative Colitis (DC), Hyponatremia (DC) Additional Instructions: follow up with 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
== END 2018-12-12 15:00 | disposition home or self-care (01) | DRG 386 ==
LOC: H.ER 15:37 → H.ERHOLD 19:03 → H.MEDSURG1 21:24
PROVIDERS: ADMIT Internal Medicine; ATTEND Internal Medicine
DX: K51.911 Ulcerative colitis, unspecified with rectal bleeding (principal); D62 Acute posthemorrhagic anemia; E87.1 Hypo-osmolality and hyponatremia; E87.6 Hypokalemia; I10 Essential (primary) hypertension; Z87.891 Personal history of nicotine dependence